=== PATIENT | female | born 1995 | race Two or more races ===

== ENCOUNTER 2024-09-14 13:39 | Emergency (ER) | payer OTHER, SELFPAY ==
[2024-09-14 13:41] VITALS: BMI 33392.5
[2024-09-14 13:50] VITALS: BP 132/85; PULSE 110; RESP 16; TEMP 36.8; O2SAT 96
--- NOTE | 2024-09-14 13:57 | EKG_ITS ---
[facility] Test Date: 2024-09-14 Pat Name: KAY HEREDIA Department: Room: - Gender: Female [employer]: : 1995 Requested By: Bart Fowler Order Number: [id number] Reading MD: Bart Fowler Measurements Intervals [place] Rate: 115 P: 50 WV: 142 QRS: 44 QRSD: 77 T: -5 QT: 296 QTc: 410 Interpretive Statements SINUS TACHYCARDIA ABNORMAL RHYTHM ECG No previous ECG available for comparison /store/S0/[id number].pdf
--- NOTE | 2024-09-14 13:58 | EDNOTE_ITS ---
ED Chest Pain RME/HPI General Chief Complaint: Chest Pain Stated Complaint: Left breast pain and pt. is late getting period Source: patient Arrival date/time: 09/14/24 13:39 29-year-old female with no known medical history presents to the emergency room with a chief complaint of left-sided chest pain and breast pain x 1 day. Patient is also saying she is late on her period. Mode of arrival: ambulatory Limitations: no limitations Related Data Previous Rx's ?Medication ?Instructions ?Recorded nitrofurantoin 100 mg PO Q12H 5 days #10 ca ps 09/14/24 monohydrate/macrocrystals 100 mg capsule (Macrobid) Allergies Allergy/AdvReac Type Severity Reaction Status Date / Time No Known Allergies Allergy Verified 09/14/24 13:41 Review of Systems Review of Systems Systems Reviewed: All systems reviewed, normal except as documented Constitutional Constitutional: Reports system reviewed and no additional complaints, except as documented, Denies fatigue, Denies fever(s), Denies headache(s) and Denies wea kness Eyes Eyes: Reports system reviewed and no additional complaints, except as documented, Denies blurry vision and Denies change in vision ENT Ears, Nose, Mouth, and Throat: Reports system reviewed and no additional complaints, except as documented, Denies otalgia, Denies headache(s), Denies nasal congestion, Denies throat swelling and Denies vertigo Cardiovascular Cardiovascular: Reports system reviewed and no additional complaints, except as documented, Reports chest pain, Reports chest pain at rest, Reports chest pain with activity, Denies dyspnea, Denies dyspnea on exertion and Reports irregular heart rhythm Respiratory Respiratory: Reports system reviewed and no additional complaints, except as documented, Denies chest congestion, Denies cough, Denies dyspnea, Denies dyspnea on exertion and Denies wheezing Gastrointestinal Gastrointestinal: Reports system reviewed and no additional complaints, except as documented, Denies abdominal pain, Denies cramping, Denies nausea and Denies vomiting Genitourinary Genitourinary: Reports system reviewed and no additional complaints, except as documented Musculoskeletal Musculoskeletal: Reports system reviewed and no additional complaints, except as documented and Denies back pain Integumentary/Breasts Skin/Breast: Reports system reviewed and no additional complaints, except as documented and Denies wounds Neurologic Neurologic: Reports system reviewed and no additional complaints, except as documented, Denies confusion, Denies headache(s), Denies lack of coordination, Denies vertigo and Denies weakness Psychiatric Psychiatric: Reports system reviewed and no additional complaints, except as documented, Denies anxiety, Denies confusion, Denies depression, Denies paranoia, Denies suicidal ideation and Denies tactile hallucinations Endocrine Endocrine: Reports system reviewed and no additional complaints, except as documented and Denies fatigue Hematologic/Lymphatic Hematologic/Lymphatic: Reports system reviewed and no additional complaints, except as documented and Denies lymphadenopathy Allergic/Immunologic Allergic/Immunologic: Reports system reviewed and no additional complaints, e xcept as documented, Denies throat swelling, Denies urticaria and Denies wheezing Past Medical History Social History SMOKING STATUS: Former smoker ED Exam General Limitations: Present no limitations General appearance: Present alert and in no apparent distress Head Head exam: Present atraumatic Eye Eye exam: Present normal appearance, PERRL and EOMI ENT ENT exam: Present normal exam, normal oropharynx and mucous membranes moist Neck Neck exam: Present normal inspection, full ROM and trachea midline Chest Chest inspection: Present normal inspection and symmetric chest wall rise Respiratory Respiratory exam: Present normal lung sounds bilaterally; Absent respiratory distress, wheezes, stridor, accessory muscle use or prolonged expiratory phase Cardiovascular Cardiovascular exam: Present regular rate, normal rhythm, tachycardia, normal heart sounds, +S1 and +S2; Absent diastolic murmur, rubs, gallop, clicks or JVD Abdominal Exam Abdominal exam: Present soft and normal bowel sounds; Absent tenderness Extremities Exam Extremities exam: Present normal inspection and full ROM Back Exam Back exam: Present normal inspection and full ROM Neurological Exam Neurological exam: Present alert, oriented X3 and CN II-XII intact Psychiatric Psychiatric exam: Present normal affect and normal mood Skin Skin exam: Present warm, dry, intact and normal color Course Quality Measures none Orders Category Date Time Status EKG (ED ONLY) *Do not use* NOW Care 09/14/24 13:57 Completed EKG (ED Only) Stat Exams 09/14/24 13:57 Draft B-Type Natriuretic Peptide Stat Lab 09/14/24 14:20 Completed CBC Stat Lab 09/14/24 14:20 Completed Comprehensive Metabolic Panel Stat Lab 09/14/24 14:20 Completed Drug Screen,Urine Stat Lab 09/14/24 13:35 Completed HCG,Qualitative Serum Stat Lab 09/14/24 14:20 Completed Magnesium Stat Lab 09/14/24 14:20 Completed Partial Thromboplastin Time Stat Lab 09/14/24 14:20 Completed Prothrombin Time with INR Stat Lab 09/14/24 14:20 Completed Troponin I Stat Lab 09/14/24 14:20 Completed Urinalysis Stat Lab 09/14/24 13:35 Completed Vital Signs Vital signs: Vital Signs Temperature 98.2 F 09/14/24 13:50 Pulse Rate 110 H 09/14/24 13:50 Respiratory Rate 16 09/14/24 13:50 Blood Pressure 132/85 H 09/14/24 13:50 Pulse Oximetry (%) 96 09/14/24 13:50 Oxygen Delivery Method Room Air 09/14/24 13:50 O2 saturation 96% within normal limits Procedures -ED EKG Interpretation #1: Date of EK09/14/24 Rate: 110 Interpretation: Reviewed by me EKG Impression: Sinus tachycardia Additional EKG comment: EKG shows sinus tachycardia with no ST deviation at 115 bpm Chest Pain MDM Narrative MDM Narrative:: 29-year-old female with no known medical history presents to the emergency room with a chief complaint of left-sided chest pain and breast pain x 1 day. Patient is also saying she is late on her period. Patient is hemodynamically stable and in no apparent distress. Patient has tachycardia at 115 bpm Physical examination shows left-sided 8 out of 10 sternal chest pain that radiates down her left arm. Patient has strong and regular rhythm S1 and S2 noted there are no murmurs. EKG was completed and shows sinus tachycardia at [address] deviation CBC CMP were negative for any acute findings troponin was negative Urinalysis shows a urinary tract infection. Antibiotics are sent to the patient's pharmacy. Urine drug screen showed cocaine abuse, methamphetamine abuse Patient was discharged and educated to follow-up with primary care provider in the next 24 to 48 hours and return to the emergency room for any evidence of worsening signs or symptoms Patient data External records reviewed:: [facility] previous records Clinical information provided by:: patient Social determinants that could affect healthcare access:: none Patient has the following chronic illnesses:: No chronic illness How is presenting disease/condition affected by chronic disease/condition?: no chronic disease Evaluation data The following diagnostics were reviewed and interpreted by me:: lab results and radiology exam(s) Lab and/or radiology exams considered but not ordered:: Labs and radiology exams considered and ordered Interpretation Summary: N/A Medications / Prescriptions Medications or Prescriptions considered but not ordered:: No medication given Medication administrations:: No medication given Consultations Consultation(s) initiated? (list below): No Diagnosis Chest Pain Differential Diagnosis: atypical chest pain, st elevation myocardial infarction and other (Methamphetamine abuse/urinary tract infection) Most likely diagnosis given after review of the tests above:: Methamphetamine abuse/urinary tract infection Admission Indicated Admission indicated?: not indicated Admission Request Was there a request for admission?: No Disposition Plan Disposition Plan: Discharge Discharge Attestation Discharge Attestation: The patient and all family members were given an opportunity to ask questions and understood the discharge instructions. Discharge instructions specifically effects, indications for sooner follow up or return to the emergency department, and the expected course of current diagnosis. Patient condition: Stable Discharge Plan Plan Patient Disposition: HOME (Self Care) Disposition Comment: Stable Prescriptions/Referrals Prescriptions/Med Rec: New nitrofurantoin monohyd/m-cryst [Macrobid] 100 mg capsule 100 mg PO Q12H 5 Days Qty: 10 0RF Rx Instructions: must administer with a meal/food Referrals: No Primary/Family,Physician [Primary Care Provider] - In 1 week Problem List Clinical Impression: Methamphetamine abuse, Cocaine abuse, Non-cardiac chest pain, Urinary tract infection Patient/Caregiver Discharge Instructions Education Materials: ED Chest Pain, Noncardiac, ED Cocaine And Crack Abuse, ED Drug Abuse Additional Instructions: Please follow-up with your primary care provider in the next 24 to 48 hours Please stop using methamphetamine and cocaine as this could be the cause of your chest pain. Your cardiac examination was negative for any acute findings. For any evidence of worsening signs or symptoms return to the emergency room immediately Print Language: Swiss Stand Alone Forms: Tamara Award Info., Patient Portal Info Letter PA/[employer] Supervising Physician PA/AMEENA Supervising Physician: Dr Parker
[2024-09-14 14:16] LABS: Collection Type, Urine Clean Catch
[2024-09-14 14:29] LABS: Basophils % (Auto) 0 % (0-2.5); Eosinophils # (Auto) 0.1 Thou/mm3 (0.0-0.5); Eosinophils % (Auto) 1 % (0-10); Hematocrit 40.3 % (36.0-46.0); Hemoglobin 13.7 g/dL (12.0-16.0); Immature Granulocytes % (Auto) 0 % (0-0); Immature Granulocytes Auto 0.04 Thou/mm3 (0.00-0.00); Lymphocytes # (Auto) 2.2 Thou/mm3 (1.0-4.8); Lymphocytes % (Auto) 19 % (10-50); Mean Corpuscular Volume 88 fL (80-100); Monocytes # (Auto) 0.7 Thou/mm3 (0.0-0.8); Monocytes % (Auto) 6 % (0-12); Neutrophils # (Auto) 8.6 Thou/mm3 (1.8-7.7); Neutrophils % (Auto) 74 % (37-80); Nucleated Red Blood Cell % 0 /100 WBC (0); Platelet Count 276 Thou/mm3 (140-440); RDW Standard Deviation 43.2 fL (36.4-46.3); Red Blood Count 4.57 Miln/mm3 (4.00-5.20); White Blood Count 11.6 Thou/mm3 (3.6-11.0)
[2024-09-14 14:32] LABS: Amphetamine/Methamp Scrn,U Positive (Negative); Barbiturate Screen,Urine Negative (Negative); Benzodiazepines Screen,Urine Negative (Negative); Benzoylecgonine Screen, Ur Positive (Negative); Fentanyl Screen,Urine Negative (Negative); Opiate Screen,Urine Negative (Negative); THC Screen,Urine Positive (Negative)
[2024-09-14 14:33] LABS: Bacteria,Urine 1+; Bilirubin,Urine Negative (Negative); Blood,Urine Negative (Negative); Color,Urine Yellow (Lt Yel-Yel); Glucose, Urine Negative (Negative); Ketones,Urine 1+ (Negative); Leukocyte Esterase,Urine Positive (Negative); Nitrite,Urine Negative (Negative); Protein,Urine 1+ (Neg - Trace); RBC,Urine 17 /hpf (0-3); Specific Gravity,Urine 1.022 (1.001-1.035); Squamous Epithelial Cell,Urine 8 /hpf (0-5); WBC,Urine 85 /hpf (0-5)
[2024-09-14 14:43] LABS: INR 1.1 (0.9-1.3); Prothrombin Time 11.9 Seconds (9.0-12.2)
[2024-09-14 14:44] LABS: Clarity,Urine Hazy (Clear/Hazy)
[2024-09-14 14:48] LABS: Alanine Aminotransferase 13 U/L (10-49); Albumin, Serum 4.9 gm/dL (3.5-5.0); Albumin/Globulin Ratio 1.4 (1.2-2.2); Alkaline Phosphatase 108 U/L (46-116); Anion Gap 9 (7-16); Aspartate Amino Transferase 19 U/L (0-34); BUN/Creatinine Ratio 15 Ratio (12-20); Bilirubin,Total 0.9 mg/dL (0.3-1.2); Blood Urea Nitrogen 12 mg/dL (9-23); Calcium 9.9 mg/dL (8.3-10.6); Calcium (Corrected) 9.9 mg/dL (8.5-10.1); Carbon Dioxide 27.3 mMol/L (20.0-31.0); Chloride 103 mMol/L (98-107); Creatinine (Component) 0.8 mg/dL (0.6-1.3); Estimated Creatinine Clearance 92.7 mL/min (>60); Globulin 3.4 gm/dL (2.3-3.5); Glucose 97 mg/dL (74-106); Magnesium 2.1 mg/dL (1.6-2.6); Osmolality,Calculated 277 (275-295); Potassium 4.5 mMol/L (3.4-5.1); Sodium 139 mMol/L (136-145); Total Protein 8.3 gm/dL (5.7-8.2); Troponin I < 0.002 ng/mL (0.0-0.045); eGFR > 60 See Note
[2024-09-14 15:10] LABS: B-Type Natriuretic Peptide < 20 pg/mL (0-100)
[2024-09-14 15:19] LABS: HCG,Qualitative Serum Negative
== END 2024-09-14 16:45 | disposition home or self-care (01) ==
PROVIDERS: Nurse Practitioner Family; Emergency Provider Emergency Medicine
DX: R07.89 Other chest pain (principal); F15.10 Other stimulant abuse, uncomplicated; F14.10 Cocaine abuse, uncomplicated; N39.0 Urinary tract infection, site not specified
CPT/HCPCS: 36415; 80053; 80307; 81001; 83735; 83880; 84484; 84703; 85025; 85610; 85730; 93005; 99283

== ENCOUNTER 2024-10-29 16:25 | Emergency (ER) | payer OTHER, SELFPAY ==
[2024-10-29 16:26] VITALS: BP 111/71; PULSE 118; RESP 17; TEMP 36.9; O2SAT 95
[2024-10-29 16:27] VITALS: BMI 34.5
[2024-10-29 16:28] VITALS: PULSE 127; RESP 28; O2SAT 98
--- NOTE | 2024-10-29 16:41 | EDNOTE_ITS ---
ED Anxiety RME/HPI General Chief Complaint: Anxiety Stated Complaint: ANXIETY Arrival date/time: 10/29/24 16:25 RME / HPI RME / HPI narrative: DR. PARKER MAIN ED EVALUATION: 29 year old female presents to the Emergency Department [facility] with complaint of anxiety attack where patient was hyperventilating, tachycardic at 118, and hypertensive at 220 systolic. Patient is alert and oriented and feels better now. She states she uses methamphetamine, last used 3 weeks ago. Related Data Allergies Allergy/AdvReac Type Severity Reaction Status Date / Time No Known Allergies Allergy Verified 09/14/24 13:41 Review of Systems Review of Systems Systems Reviewed: All systems reviewed, normal except as documented Narrative Review of Systems: GEN: No fever, no chills, no weight loss EYES: No discharge, no visual changes, no pain HEENT: No ear pain, no congestion, no sore throat PULM: No shortness of breath, no cough, no congestion CV: No chest pain, no dyspnea on exertion, no palpitations GI: No nausea, no vomiting, no diarrhea, no pain, no constipation : No frequency, no urgency and no dysuria MUSC/SKEL: No joint pain, no back pain SKIN: No rash PSYCH: No hallucinations, no depression, + anxiety (see HPI) HEME/LYMPH: No easy bleeding or bruising tendencies NEURO: No weakness, no headache Past Medical History Social History SMOKING STATUS: Never smoker SUBSTANCE USE: methamphetamine ED Exam Narrative Physical exam: GENERAL APPEARANCE: AxOx4, generally well-appearing, no acute distress, anxious HEENT: NC, AT. MMM. EOMI, clear conjunctiva, oropharynx clear. NECK: Supple without lymphadenopathy. No stiffness or restricted ROM. HEART: Tachycardic and regular rhythm, normal S1/S1, no m/r/g LUNGS: CTAB, moving air well. No crackles or wheezes are heard. ABDOMEN: Soft, nontender, nondistended with good bowel sounds heard. BACK: No midline C/T/L spine pain or deformity, No CVAT, no obvious deformity. EXTREMITIES: Without cyanosis, clubbing or edema. MUSCULOSKELETAL: FROM of all major joints, no chest tenderness NEUROLOGICAL: Grossly nonfocal. Alert and oriented, moving all 4 extremities. CN not formally tested but appear grossly intact. Observed to ambulate with normal gait. Skin: Warm and dry without any rash. Course Quality Measures none Vital Signs Vital signs: Vital Signs Temperature 98.4 F 10/29/24 16:26 Pulse Rate 118 H 10/29/24 16:26 Respiratory Rate 17 10/29/24 16:26 Blood Pressure 111/71 10/29/24 16:26 Pulse Oximetry (%) 95 10/29/24 16:26 Oxygen Delivery Method Room Air 10/29/24 16:26 Anxiety MDM Narrative MDM Narrative: I, Kiki Mac am scribing for and in the presence of Dr. Parker. Patient data External records reviewed:: EMS form Clinical information provided by:: patient and EMS Social determinants that could affect healthcare access:: substance use (Methamphetamine abuse) Patient has the following chronic illnesses:: Denies any PMHx, surgeries, daily medications, or known allergies. Methamphetamine abuse. How is presenting disease/condition affected by chronic disease/condition?: no chronic disease Evaluation data The following diagnostics were reviewed and interpreted by me:: other (specify) (none) Lab and/or radiology exams considered but not ordered:: none Interpretation Summary: n/a Medications / Prescriptions Medications or Prescriptions considered but not ordered:: none Medication administrations:: none Consultations Consultation(s) initiated? (list below): No Diagnosis Differential diagnosis anxiety: hyperventilation, panic disorder, acute anxiety and other (methamphetamine abuse) Most likely diagnosis given after review of the tests above:: Acute anxiety Methamphetamine abuse Admission Indicated Admission indicated?: not indicated Admission Request Was there a request for admission?: No Disposition Plan Disposition Plan: Discharge Discharge Attestation Discharge Attestation: The patient and all family members were given an opportunity to ask questions and understood the discharge instructions. Discharge instructions specifically effects, indications for sooner follow up or return to the emergency department, and the expected course of current diagnosis. Patient condition: Stable Discharge Plan Plan Patient Disposition: HOME (Self Care) Problem List Clinical Impression: Acute anxiety, Methamphetamine abuse Patient/Caregiver Discharge Instructions Education Materials: ED Anxiety Reaction, ED Drug Abuse Additional Instructions: Follow-up with your primary care doctor and or [facility] health if you feel ready for anxiety, and/or drug assistance/rehab. You can return to the emergency department sooner if symptoms worsen or if you notice any new, concerning issues. Print Language: Icelandic Stand Alone Forms: Tamara Award Info., Patient Portal Info Letter
== END 2024-10-29 16:53 | disposition home or self-care (01) ==
PROVIDERS: Emergency Provider Emergency Medicine
DX: F41.9 Anxiety disorder, unspecified (principal); F15.10 Other stimulant abuse, uncomplicated
CPT/HCPCS: 99281